=== PATIENT | female | born 1990 | race Caucasian/White ===

== ENCOUNTER 2022-02-07 18:12 | Emergency (ER) | payer SELFPAY ==
[~2022-02-07] VITALS: Ht 175.3 cm; Wt 113.0 kg
[2022-02-07 18:49] VITALS: BP 144/89
[2022-02-07] MEDS ORDERED: IBUP-2029 MT (22:28)
== END 2022-02-08 00:02 | disposition home or self-care (01) ==
LOC: ER 18:12
DX: S93.491A Sprain of other ligament of right ankle, initial encounter (principal); W10.8XXA Fall (on) (from) other stairs and steps, initial encounter; Y93.89 Activity, other specified; Y92.89 Other specified places as the place of occurrence of the external cause; Y99.8 Other external cause status
CPT/HCPCS: 29515; 73590; 73600; 99284